=== PATIENT | male | born 1960 | race Caucasian/White ===

== ENCOUNTER 2020-04-22 11:27 | Emergency (ER) | payer BC ==
[~2020-04-22] VITALS: Ht 182.9 cm; Wt 122.7 kg
[2020-04-22 11:28] VITALS: BP 165/84
[2020-04-22] MEDS ORDERED: PERCOCET 5MG/325MG TAB PO ONE (12:30)
[2020-04-22] MEDS ORDERED: PERC5TAB12 PO (12:35)
--- NOTE | 2020-04-22 12:53 | REPVR ---
PROCEDURE INFORMATION: Exam: XR Left Clavicle, Complete Exam date and time: 04/22/2020 11:43 AM Age: 59 years old Clinical indication: Pain; Shoulder; Left; Additional info: Fall from 6 feet TECHNIQUE: Imaging protocol: XR Left clavicle complete. Any number of views. COMPARISON: No relevant prior studies available. FINDINGS: Bones/joints: A a mid shaft fracture of the left clavicle is observed with 3 cm of over riding with the medial segment projecting above the lateral on the lordotic view. Soft tissues: Normal. IMPRESSION: A a mid shaft fracture of the left clavicle is observed with 3 cm of over riding with the medial segment projecting above the lateral on the lordotic view. Electronically signed by: Domo Serrano On 04/22/2020 12:52:45 PM
== END 2020-04-22 13:39 | disposition home or self-care (01) ==
LOC: M ED 11:27
DX: S42.025A Nondisplaced fracture of shaft of left clavicle, initial encounter for closed fracture (principal); W11.XXXA Fall on and from ladder, initial encounter; Y92.828 Other wilderness area as the place of occurrence of the external cause; Y93.89 Activity, other specified; Y99.9 Unspecified external cause status